=== PATIENT | female | born 1955 ===

== ENCOUNTER 2024-12-29 06:16 | Day surgery (SDC) | payer MEDICARE, OTHER, SELFPAY ==
[2024-12-29 08:42] LABS: Glucose - Point of Care 140 mg/dl (70-99)
== END 2024-12-29 09:46 | disposition home or self-care (01) ==
LOC: GI 06:16
PROVIDERS: ATTENDING PHYSICIAN Internal Medicine Gastroenterology
DX: R10.11 Right upper quadrant pain (principal); R12 Heartburn; K31.A19 Gastric intestinal metaplasia without dysplasia, unspecified site; T18.128A Food in esophagus causing other injury, initial encounter; W44.F3XA Food entering into or through a natural orifice, initial encounter
CPT/HCPCS: 43235; 82962

== ENCOUNTER 2025-01-16 06:34 | Day surgery (SDC) | payer MEDICARE, OTHER, SELFPAY ==
[2025-01-16 08:34] LABS: Glucose - Point of Care 150 mg/dl (70-99)
== END 2025-01-16 10:30 | disposition home or self-care (01) ==
LOC: GI 06:34
PROVIDERS: ATTENDING PHYSICIAN Internal Medicine Gastroenterology
DX: R10.13 Epigastric pain (principal); K44.9 Diaphragmatic hernia without obstruction or gangrene; K22.2 Esophageal obstruction; K31.7 Polyp of stomach and duodenum; R10.11 Right upper quadrant pain; K31.A19 Gastric intestinal metaplasia without dysplasia, unspecified site; K31.89 Other diseases of stomach and duodenum; K29.50 Unspecified chronic gastritis without bleeding
CPT/HCPCS: 43239; 82962; 88305; 88342